=== PATIENT | female | born 1975 | race Caucasian/White ===

== ENCOUNTER 2016-09-14 02:27 | Observation (INO) | payer BC, OTHER ==
--- NOTE | ~2016-09-14 | CR72 ---
[facility] A Service of [facility] & [facility] RADIOLOGY TEXT RESULTS PATIENT: ATUL OWENS LOCATION: [facility] 327-01 : [birth year] UNIT #: [id number] AGE: [address]: Alan Vieira MD SEX: F ORDER DR: [id number] [facility] [address]. [place], [place] [address] [id number] I MR#: [id number] Acc #: [id number] NAME: ATUL OWENS : 1975 SEX: F STUDY DATE/TIME: 09/14/2016 02:53 UNIT: [address] ROOM: [facility] STUDY DESCRIPTION: CR Chest Single View Portable Attending Physician: Alan Vieira M.D. Ordering Physician: Louie Benavides M.D. Primary Care Physician: Johnny Devlin M.D. MEDICAL IMAGING REPORT This report is preliminary unless electronic signature is present EXAM Portable chest 09/14/2016 02:53 INDICATION Chest pain on the left side with shortness of air that started at 01:30 a.m. this morning. FINDINGS A single AP portable view of the chest shows both lungs to be clear. The heart is normal in size. The mediastinal contour is normal. No significant bone abnormalities are seen. IMPRESSION Normal portable chest. Dictated by... Marcus Pina Jr., M.D. THIS IS AN ELECTRONICALLY VERIFIED REPORT Marcus Pina Jr., M.D. at 09/14/2016 9:14 PM DANIEL/viviana TD: 09/14/2016 11:04 JOB #: [id number] MEDICAL IMAGING REPORT Page 1 of 1 COPY
--- NOTE | ~2016-09-14 | EKG ---
PATIENT: ATUL OWENS UNIT #: [id number] Ventricular Rate: 101 BPM Atrial Rate: 101 BPM P-R Interval: 154 ms QRS Duration: 84 ms Q-T Interval: 330 ms QTC Calculation(Bezet): 427 ms P [place]: 39 degrees Calculated R [place]: 17 degrees Calculated T [place]: 33 degrees Diagnosis Line: Sinus tachycardia Diagnosis Line: Otherwise normal ECG Diagnosis Line: No previous ECGs available Diagnosis Line: Confirmed by SEVERIANO GUTIERREZ MD ([id number]) on Diagnosis Line: 09/16/2016 8:34:12 AM INTERPRETING MD: MATT CHACON
--- NOTE | ~2016-09-14 | ST ---
Unit #: [id number] #: [id number] Patient: ATUL OWENS [id number] [address] [address] [id number] I MR#: [id number] NAME: ATUL OWENS : 1975 SEX: F STUDY DATE/TIME: UNIT: C3A [facility] ROOM: [facility] STUDY DESCRIPTION: Stress Test Attending Physician: Alan Vieira M.D. Primary Care Physician: Johnny Devlin M.D. CARDIOLOGY REPORT EXAM Exercise Cardiolite Stress Test DESCRIPTION Baseline EKG - normal sinus rhythm with ventricular rate 86 beats/minute. Patient walked on the treadmill for 7 minutes 30 seconds utilizing Nils protocol achieving a workload of 8.70 METs. 86% of maximum target heart rate achieved at 157 beats/minute with a maximum blood pressure response of 186/100 mmHg. EKG during the test showed some nonspecific ST-T wave abnormalities in inferior lateral leads, otherwise unremarkable. The patient had no complaints of chest pain, palpitations or dizziness. Had increased shortness of breath and fatigueness which resolved in recovery phase. IMPRESSION 1. Functional class 3 with a workload of 8.70 METs. 2. Patient achieved 86% of maximum target heart rate at 157 beats/minute with a hypertensive blood pressure response 186/100 mmHg. It was noted at the end of recovery phase the patient's blood pressure decreased down to 136/86 mmHg. 3. Patient had no complaints of chest pain, palpitations or dizziness. Had increased shortness of breath and fatigueness which resolved in recovery phase. 4. Cardiolite was injected at maximum target heart rate. Radionuclide test pending. Please correlate with nuclear images. Dictated by... Cher Hoffman A.P.R.N. for David Garcia/vivian TD: 09/14/2016 14:27 JOB #: [id number] Unit #: [id number] #: [id number] Patient: ATUL OWESN CARDIOLOGY REPORT Page 1 of 1 X Cher Hoffman APRN CARDIOLOGY REPORT
--- NOTE | ~2016-09-14 | TH ---
Unit #: [id number] #: [id number] Patient: ATUL OWENS [id number] [address] [address] [id number] I MR#: [id number] NAME: ATUL OWENS : 1975 SEX: F STUDY DATE/TIME: 09/16/2016 UNIT: C3A [facility] ROOM: [facility] STUDY DESCRIPTION: Attending Physician: Alan Vieira M.D. Primary Care Physician: Johnny Devlin M.D. CARDIOLOGY REPORT EXAM Exercise Cardiolite stress test, nuclear portion. PROCEDURE Using technetium 99m labeled Cardiolite, rest and stress SPECT images were obtained. Multiple SPECT images were obtained in various views including horizontal and vertical long axis and short axis views of the left ventricle. Images were obtained by gated SPECT method. The patient was administered 10.78 mCi of Cardiolite at rest. Patient was administered 34.2 mCi of Cardiolite at peak exercise. Total exercise time is 7 minutes and 30 seconds. On the stress images, there is normal perfusion noted. The rest images show mild decreased isotope activity inferoapically consistent with soft tissue artifact. Comparing rest and stress images, there is no stress-induced ischemia noted. The left ventricular ejection fraction is calculated to be 74%. There is no focal wall motion abnormality seen. CONCLUSION 1. No stress-induced ischemia noted. 2. The left ventricular ejection fraction is calculated to be 74%. 3. There is no focal wall motion abnormality seen. 4. The left ventricular size is small. 5. Normal exercise Cardiolite stress test. Dictated by... David Wynne TD: 09/16/2016 16:53 JOB #: [id number] Unit #: [id number] #: [id number] Patient: ATUL OWENS CARDIOLOGY REPORT Page 1 of 1 X Sofie Gardner MD <ELECTRONICALLY SIGNED> 11/23/16 [id number] CARDIOLOGY REPORT
--- NOTE | ~2016-09-14 | HP ---
Unit #: [id number] #: [id number] Patient: ATUL CASTRO [id number] [address] [place], [place] [address] [id number] I MR#: [id number] NAME: ATUL CASTRO ROOM: 327 Age: 40 Sex: F Admission Date: 09/14/2016 : 1975 Attending Physician: Alan Vieira M.D. Primary Care Physician: Johnny Devlin M.D. HISTORY AND PHYSICAL HISTORY OF PRESENT ILLNESS This is a 40-year-old white female with known history of hypertension, hyperlipidemia, remote history of kidney stones, nonsmoker, who came to the emergency room with onset of mid sternal chest pain that radiated over in the left anterior chest wall near the left breast and up into the left shoulder. She had some numbness and tingling in her left upper arm. She became very nauseated and finally vomiting x1. She said she just felt very weak. Her boyfriend insisted she come to the hospital for further evaluation. She had an older sister who was only 2 years older than her who at the age of 39 of a massive heart attack. She is concerned this could be her heart. She has not had this kind of pain in the past. She denies any dizziness, presyncope or syncope. No palpitations, no diaphoresis with the episode, denies any recent cough, fever, or chills. In the emergency room, the patient's blood pressure was 130/88, heart rate 87, respirations 18, temperature 97.9, O2 saturations 99% on room air. Patient's EKG showed sinus rhythm with some nonspecific changes. Her chest x-ray did not show anything acute. Her initial cardiac enzymes are negative. The patient has been admitted for further evaluation and workup. PAST MEDICAL HISTORY 1. Hypertension. She has been on losartan. 2. History of kidney stones. 3. Allergic to iodine. 4. Hyperlipidemia. 5. Obesity. Weight 209 pounds with a BMI of 36. 6. No stress or cardiac catheterization in the past. 7. Nonsmoker. 8. Her older sister was 2 years older and who at the age of 39 from reported massive heart attack. PAST SURGICAL HISTORY 1. Cholecystectomy. 2. Appendectomy. 3. Two sections. 4. Kidney stents for kidney stones in 1999. 5. Hysterectomy. HOME MEDICATIONS 1. Losartan 100 mg p.o. daily. 2. Atorvastatin 80 mg one tablet p.o. daily. 3. Hydrochlorothiazide 25 mg p.o. daily. 4. Ibuprofen 400 mg one to two tablets p.r.n. Unit #: [id number] #: [id number] Patient: ATUL CASTRO 5. Fish oil. 6. Multivitamin one tablet daily. ALLERGIES 1. Iodine. 2. Iodine-containing products. 3. Tramadol. 4. Meperidine. 5. Toradol. SOCIAL HISTORY The patient lives with her boyfriend. She works full-time at a sedentary job. No alcohol or nicotine abuse. No illicit drug abuse. FAMILY HISTORY Both of her parents are in generally well health. She had an older sister who was only 2 years older that at the age of 39 suddenly from a massive [place]. REVIEW OF SYSTEMS CONSTITUTIONAL: Denies fever or chills. No recent weight gain or weight loss. HEENT: Denies visual changes. No lymphadenopathy, thyromegaly, or difficulty swallowing. CARDIOVASCULAR: Chest pain present. Denies palpitations. Denies increased lower extremity edema. PULMONARY: Had some slight shortness of breath with the episode. Denies any paroxysmal nocturnal dyspnea or orthopnea. GASTROINTESTINAL: Had some nausea and vomiting with the episode. No reported diarrhea or abdominal pain. NEUROLOGIC: No focal weakness. PHYSICAL EXAMINATION VITAL SIGNS: Blood pressure 131/88, heart rate 88, respirations 16, temperature 97.9, O2 saturations 99% on room air. GENERAL: Ms. Castro is a 40-year-old white female in no acute respiratory distress. She is awake, alert, and oriented. NECK: Trachea midline. No thyromegaly, lymphadenopathy. Normal carotid upstrokes. No jugular venous distention. HEART: S1, S2. Regular rate and rhythm. No clicks, murmurs, or rubs. LUNGS: Diminished, otherwise, clear. ABDOMEN: Obese, soft, nontender. Positive bowel sounds are present. No hepatosplenomegaly. EXTREMITIES: Pedal pulses are palpable. No pedal edema. DIAGNOSTIC STUDIES LABORATORY: Glucose 160, BUN 13, creatinine 0.6, EGFR 114, sodium 135, potassium 3.5, chloride 107, CO2 is 19, calcium 8.9, total protein 7.3, albumin 4.2, total bilirubin 0.8, AST 20, ALT 22, alkaline phosphatase 73. Cholesterol 187, triglycerides 618, LDL not performed, HDL 38. WBC 9.5, hemoglobin 13.2, hematocrit 39.6, platelets 201. Initial cardiac enzymes CKMB less than 1.0, troponin less than 0.05; CKMB 1.0, troponin less than 0.05. Latest cardiac enzymes, CK total is 40, troponin less than 0.03. IMAGING: Chest x-ray shows nothing abnormal. No significant abnormalities. CARDIOVASCULAR: EKG shows normal sinus rhythm with ventricular rate 101 Unit #: [id number] #: [id number] Patient: CASTRO,ATUL beats per minute, poor R-wave progression. Questionable Q wave in lead III. Nonspecific ST-T-wave abnormalities in aVF and V6. IMPRESSION 1. Chest pain, questionable etiology. 2. Hypertension. 3. Hyperlipidemia. 4. Hyperglycemia. 5. Obesity. 6. Older sister at the age of 39 of a massive myocardial infarction. 7. Nonsmoker. 8. BMI 36. PLAN 1. Three sets of cardiac enzymes are negative. 2. EKG is unremarkable. 3. Will perform an exercise Cardiolite stress test to further evaluate for ischemic heart disease. 4. On exam, there are no signs or symptoms of acute congestive heart failure so will hold up on echo at this time. 5. Patient's triglycerides are very elevated. Patient says she wants to follow up with her PCP. She has been seeing them and has been on atorvastatin. She will discuss about adding or changing something for better control of her hyperlipidemia. 6. Patient's blood sugar on admission was 160. Will instruct the patient to follow up with her PCP to evaluate for type 2 diabetes mellitus. 7. Encourage patient on healthy lifestyle changes such as exercise, lose weight, better diet control for her hypertension and her hyperglycemia. It would also improve her hyperlipidemia. 8. Further recommendations pending per Dr. Vieira. Dictated by Cher Hoffman A.P.R.N. for Alan Vieira M.D. SUMA/erin TD: 09/14/2016 14:11 JOB #: [id number] HISTORY AND PHYSICAL Page 1 of 1 X Cher Hoffman APRN X HISTORY AND PHYSICAL
[2016-09-14 03:05] LABS: BASOPHIL# 0.1 X10e3 (0-0.3); BASOPHIL% 0.6 % (0-2.5); EOSINOPHIL# 0.1 X10e3 (0-0.7); EOSINOPHIL% 1.2 % (0.0-7.0); HEMATOCRIT 39.6 % (35.0-45.0); HEMOGLOBIN 13.2 gm/dL (12.0-16.0); LYMPHOCYTE# 3.2 X10e3 (1.0-3.5); LYMPHOCYTE% 33.4 % (17.0-45.0); MEAN CORPUSCULAR HEMOGLOBIN 25.9 PG (28-34); MEAN CORPUSCULAR HGB CONC 33.2 g/dL (30-36); MEAN PLATELET VOLUME 10.1 FL (6.5-11.5); MONOCYTE# 0.7 X10e3 (0-1.0); MONOCYTE% 7.7 % (3.0-12.0); NEUTROPHIL# 5.4 X10e3 (1.5-7.1); NEUTROPHIL% 57.1 % (40-75); PLATELET COUNT 201 X10e3 (140-420); RED BLOOD COUNT 5.08 X10e (3.90-5.30); WHITE BLOOD COUNT 9.5 X10e3 (4.0-10.5)
[2016-09-14 03:20] LABS: DIFF IND NO; INR 0.9; PARTIAL THROMBOPLASTIN TIME 25.2 SECONDS (23.5-31.3); PROTHROMBIN TIME (PATIENT) 9.9 SECONDS (9.6-11.5)
[2016-09-14 03:24] LABS: ALBUMIN SERUM 4.2 g/dL (3.5-5.0); BILIRUBIN, DIRECT 0.2 mg/dL (0.0-0.2); BILIRUBIN,INDIRECT 0.6 mg/dL (0.0-0.9); BILIRUBIN,TOTAL 0.8 mg/dL (0.2-2.0); BUN/CREATININE RATIO 21.66; CALCIUM SERUM 8.9 mg/dL (8.4-10.2); CREATININE SERUM 0.6 mg/dL (0.6-1.4); GLOM FILT RATE Estimated 114.8 mL/min (>60); POTASSIUM 3.5 mmol/L (3.5-5.1); PROTEIN TOTAL SERUM 7.3 g/dL (6.0-8.3)
[2016-09-14 03:35] LABS: POC - CKMB <1.0 ng/mL (0.0-7.9); POC - TROPONIN <0.05 ng/mL (<=0.05)
[2016-09-14 05:27] LABS: POC - CKMB <1.0 ng/mL (0.0-7.9); POC - TROPONIN <0.05 ng/mL (<=0.05)
[2016-09-14 06:19] LABS: CHOLESTEROL 187 mg/dL (0-200); HDL CHOLESTEROL 38 mg/dL (35-95)
[2016-09-14 06:20] LABS: TRIGLYCERIDES 618 mg/dL (10-160)
[2016-09-14 10:39] LABS: CK TOTAL 40 IU/L (26-140)
[2016-09-14] MEDS ORDERED: PROTONIX PO (17:27)
[2016-09-14] MEDS ORDERED: ATORVASTATIN CA80 MG PO (17:28)
[2016-09-14] MEDS ORDERED: COZAAR100 MG PO (17:29)
[2016-09-14] MEDS ORDERED: HYDROCHLOROTHIA25 MG PO (17:29)
== END 2016-09-14 18:20 | disposition home or self-care (01) | DRG 313 ==
LOC: CED 02:27 → CEDOF 05:20 → C3A PCU 05:20 → CED 05:28 → CEDOF 05:28 → C3A PCU 07:58
PROVIDERS: Emergency Medicine; Internal Medicine Cardiovascular Disease
DX: R07.89 Other chest pain (principal); I10 Essential (primary) hypertension; E78.5 Hyperlipidemia, unspecified; R73.9 Hyperglycemia, unspecified; E66.9 Obesity, unspecified; I25.2 Old myocardial infarction; Z68.36 Body mass index [BMI] 36.0-36.9, adult; Z91.048 Other nonmedicinal substance allergy status; Z90.710 Acquired absence of both cervix and uterus; Z90.49 Acquired absence of other specified parts of digestive tract; Z87.442 Personal history of urinary calculi; Z88.6 Allergy status to analgesic agent
CPT/HCPCS: 36415; 71010; 78452; 80048; 80061; 80076; 82550; 82553; 84484; 85025; 85610; 85730; 93005; 93017; 99285; A9500; G0378; J1650